=== PATIENT | female | born 1975 | race Caucasian/White ===

== ENCOUNTER 2018-01-19 20:29 | Emergency (ER) | payer OTHER ==
[~2018-01-19] VITALS: Ht 152.4 cm; Wt 66.5 kg
[~2018-01-19 20:29] MED LIST: LISINOPRIL AND1 TAB PO; XANAX0.25 MG PO
[2018-01-19 20:35] VITALS: BP 141/92
[2018-01-19] MEDS ORDERED: FLAGYL500 MG PO (20:59)
--- NOTE | 2018-01-19 21:00 | ED GI/GU/ABDOMINAL COMPLAINT ---
History of Present Illness General Chief Complaint: Female Urogenital Problems Stated Complaint: "VAGINAL AREA ITCHY, WHITE DISCHARGE" PER PT Source: patient Exam Limitations: no limitations Vital Signs & Intake/Output Vital Signs & Intake/Output Vital Signs Date Time Temp Pulse Resp B/P B/P Pulse O2 O2 Flow FiO2 Mean Ox Delivery Rate 01/20 2104 Room Air 01/19 2035 97.9 75 18 141/92 95 Room Air Allergies Coded Allergies: NO KNOWN ALLERGIES (01/19/18) Reconcile Medications Alprazolam (Xanax) 0.25 MG TAB 1 TAB PO BID PRN ANXIETY LISINOPRIL/HYDROCHLOROTHIAZIDE (Lisinopril-Hctz 10-12.5 MG Tab) 1 TAB TAB 1 TAB PO DAILY HTN (Reported) Metronidazole (Flagyl) 500 MG TABLET 1 TAB PO BID BV Triage Note: PT TO TRIAGE WITH VAGINAL ITCHINESS AND WHITE DISCHARGE ACCOMPANIED WITH RLQ PAIN THAT BEGAN TODAY. OBJENNI WATSON. LMP 2 WEEKS AGO, NORMAL PER PT. -N/V. Triage Nurses Notes Reviewed? yes ? N Is pt currently ? No Onset: Abrupt Duration: day(s): (1), constant Location: vaginal HPI: 42-year-old female comes into the emergency room with complaints of vaginal itching and pain starting today. Denies any fever chills vomiting. She reports that she also has some chronic right-sided abdominal pain that's intermittent for 6 months. pain currently in her abdomen. Past History Travel History Traveled to [place] past 21 day No Medical History Any Pertinent Medical History? see below for history Neurological: NONE EENT: NONE Cardiovascular: hypertension Respiratory: NONE Gastrointestinal: NONE Hepatic: NONE Renal: NONE Musculoskeletal: NONE Psychiatric: NONE Endocrine: NONE Blood Disorders: NONE Cancer(s): NONE PIT STEWARD/Reproductive: NONE Surgical History Surgical History: DENIES Psychosocial History What is your primary language Croatian Tobacco Use: Never used ETOH Use: occasional use Family History Hx Contributory? No Review of Systems Review of Systems Constitutional: Reports: no symptoms. EENTM: Reports: no symptoms. Respiratory: Reports: no symptoms. Cardiovascular: Reports: no symptoms. GI: Reports: no symptoms. Genitourinary: Reports: no symptoms. Musculoskeletal: Reports: no symptoms. Skin: Reports: no symptoms. Neurological/Psychological: Reports: no symptoms. Hematologic/Endocrine: Reports: no symptoms. Immunologic/Allergic: Reports: no symptoms. All Other Systems: Reviewed and Negative Physical Exam Physical Exam General Appearance: well developed/nourished, no apparent distress, alert Head: atraumatic Eyes: Bilateral: normal appearance. Ears, Nose, Throat, Mouth: hearing grossly normal, moist mucous membrane Neck: normal inspection Respiratory: no respiratory distress Gastrointestinal: soft, non-tender Pelvic: cervicitis (ERYTHEMATOUS,), discharge (WHITE THICK) Back: normal inspection Extremities: normal range of motion Neurologic/Psych: awake, alert, oriented x 3, normal gait, normal mood/affect Skin: intact, normal color Core Measures ACS in differential dx? No Sepsis Present: No Sepsis Focused Exam Completed? No Progress Differential Diagnosis: PID/cervicitis Plan of Care: Orders Procedure Date/time Status TRICHOMONAS 01/19 2045 Complete POTASSIUM HYDROXIDE (FARSHAD) 01/19 2045 Complete GENITAL CULTURE 01/19 2045 Active CHLAMYDIA-GC DNA PROBE 01/19 2045 Active Microbiology 01/19 2054 GENITAL: GC DNA Probe - RECD 01/19 2054 GENITAL: Chlamydia DNA Probe (EDDIE) - RECD 01/19 2054 GENITAL: FARSHAD Preparation - COMP 01/19 2054 GENITAL: Trichomonas Preparation - COMP 01/19 2054 GENITAL: Genital Culture - RECD Initial ED EKG: none Departure Departure Disposition: HOME OR SELF CARE Condition: Stable Clinical Impression Primary Impression: Cervicitis Referrals: Jonah Woodson MD (PCP/Family) Additional Instructions: Take Flagyl as prescribed. Follow-up with the [facility] doctor. Return if any other concerns. Please go over all results of today's visit with your primary care doctor. Contact your primary care doctor to let them know you were here in the emergency room. There may be nonspecific findings which may not be related to your visit today here in the emergency room but may require further evaluation and chronic monitoring by your primary care doctor. If you had a laceration today the chance of foreign body always remains. You should follow-up with your primary care doctor for recheck in 3-5 days for a wound check. If you had an x-ray done there is a chance that a fracture could have been missed on initial read and you should follow-up with your primary care doctor for repeat x-rays if symptoms persist. If your blood pressure was elevated here in the emergency room please have rechecked by [facility] primary care doctor within the next 48. If you were prescribed a narcotic here in the emergency room or any type of controlled substances you're not allowed to drive while taking this medication or operate any type of heavy machinery. Narcotics can make you feel lightheaded dizziness nausea and can cause constipation. You may need to extraction supervisor a stool softener. Thank you for choosing [facility] emergency room. Please return to the emergency room immediately if you have any other concerns worsening of symptoms. Departure Forms: Customer Survey General Discharge Information Prescriptions: Current Visit Scripts Metronidazole (Flagyl) 1 TAB PO BID #14 TAB
== END 2018-01-19 21:20 ==
LOC: ERH 20:29
DX: N72 Inflammatory disease of cervix uteri (principal); R10.9 Unspecified abdominal pain; R10.2 Pelvic and perineal pain; L29.2 Pruritus vulvae; I10 Essential (primary) hypertension
CPT/HCPCS: 87070; 87071; 87147; 87491; 87591; 96372; J0696